=== PATIENT | male | born 1995 | race African-American/Black ===

== ENCOUNTER 2019-07-27 12:30 | Outpatient (RCR) | payer OTHER, SELFPAY | END 2019-07-27 23:59 | disposition home or self-care (01) | LOC: ANHAUDIO 12:30 | PROVIDERS: PCP Pediatrics | DX: Z46.1 Encounter for fitting and adjustment of hearing aid (principal) | CPT/HCPCS: 99199; V5014; V5264 ==

== ENCOUNTER 2020-07-05 14:58 | Outpatient (RCR) | payer OTHER, SELFPAY | END 2020-07-05 23:59 | disposition home or self-care (01) | LOC: ANHAUDIO 14:58 | PROVIDERS: PCP Pediatrics; Visit Provider Pediatrics | DX: Z46.1 Encounter for fitting and adjustment of hearing aid (principal) | CPT/HCPCS: 92592 ==

== ENCOUNTER 2021-04-25 14:57 | Outpatient (RCR) | payer OTHER, SELFPAY | END 2021-04-25 23:59 | disposition home or self-care (01) | LOC: ANHAUDIO 14:57 | PROVIDERS: PCP Pediatrics; Visit Provider Pediatrics | DX: Z46.1 Encounter for fitting and adjustment of hearing aid (principal) | CPT/HCPCS: 92592 ==